=== PATIENT | female | born 1970 | race Caucasian/White ===

== ENCOUNTER → 2016-09-04 | Outpatient (CLI) | payer BC ==
[2014-11-29 11:45] VITALS: BP 96/57
[~2016-09-04] MED LIST: BIOT10TA PO; CALC500T50 PO; ESOM20CA30 PO; ESOM40CA PO; LINA290C PO; MULT-246 PO
--- NOTE | 2016-09-04 15:09 | RAD ---
EXAM: Pelvic sonogram. HISTORY: Pain. TECHNIQUE: Transabdominal and transvaginal sonographic imaging of the pelvis was performed. COMPARISON: CT dated 07/26/2016. FINDINGS: The uterus is centrally absent. The right ovary measures 2.5 x 1.2 x 2.7 cm. The left ovary measures 3.9 x 2.4 x 3.6 cm. There is a 2.2 cm complex left ovarian cyst and 2.2 cm simple appearing left ovarian cyst. There are several bilateral ovarian follicles. There is normal blood flow within both ovaries. There is a small amount of simple appearing pelvic free fluid. IMPRESSION: 1. 2.2 cm complex possibly hemorrhagic left ovarian cyst and 2.2 cm simple left ovarian cyst. This is superimposed on multiple small bilateral ovarian follicles. 2. Surgically absent uterus. 3. Small amount of nonspecific pelvic free fluid.
== END | disposition home or self-care (01) ==
LOC: US 12:48
PROVIDERS: ATTEND Surgery
DX: R10.9 Unspecified abdominal pain (principal); R10.2 Pelvic and perineal pain
CPT/HCPCS: 76830; 76856